=== PATIENT | male | born 1970 | race Two or more races ===

== ENCOUNTER 2019-08-20 13:24 | Emergency (ER) | payer SELFPAY ==
[2019-08-20] MEDS ORDERED: Aspirin 325 MG Tab PO ONE (13:29)
[2019-08-20] MEDS ORDERED: Nitroglycerin 0.4 MG Tab.SL SL ONE (13:30)
--- NOTE | 2019-08-20 13:31 | EDM.PDOC ---
ED HPI GENERAL MEDICAL PROBLEM - General Chief Complaint: Chest Pain Stated Complaint: CHEST PAIN Time Seen by Provider: 08/20/19 13:27 Source of Information: Reports: Family History Limitations: Reports: Language Barrier - History of Present Illness INITIAL COMMENTS - FREE TEXT/NARRATIVE: This 50 year old male is admitted to the ED with a chief complaint of substernal but just to the left chest pain that started this morning. According to his Niece, his pain is sharp to dull with heaviness. No radiation of pain. No nausea or vomiting. No SOB. According to his Niece, he has no history of heart disease or diabetes. He does have hypertension (?). He denies any other symptoms at this time. Left Chest Pain Score (Numeric/FACES): 6 - Related Data Allergies Allergy/AdvReac Type Severity Reaction Status Date / Time No Known Allergies Allergy Verified 08/20/19 13:32 Home Meds: Home Meds . [No Known Home Meds] 08/20/19 [History] ED ROS GENERAL - Review of Systems Review Of Systems: See Below Constitutional: Reports: No Symptoms HEENT: Reports: No Symptoms Respiratory: Reports: No Symptoms Cardiovascular: Reports: Chest Pain. Denies: Lightheadedness, Palpitations Endocrine: Reports: No Symptoms GI/Abdominal: Reports: No Symptoms : Reports: No Symptoms Musculoskeletal: Reports: No Symptoms Skin: Reports: No Symptoms Neurological: Reports: No Symptoms ED EXAM, GENERAL - Physical Exam Exam: See Below Exam Limited By: Language Barrier (but his neice is here to interpert for me.) General Appearance: Alert, WD/WN, Mild Distress (complaining of substernal chest pain.) Eye Exam: Bilateral Eye: EOMI, Normal Inspection, PERRL (4mm) Nose: Normal Inspection, Normal Mucosa Throat/Mouth: Normal Inspection, Normal Oropharynx Head: Atraumatic, Normocephalic Neck: Normal Inspection, Supple. No: Carotid Bruit Respiratory/Chest: No Respiratory Distress, Lungs Clear, Normal Breath Sounds, Chest Non-Tender Cardiovascular: Normal Peripheral Pulses, No Edema, No Gallop, No JVD, No Murmur , No Rub, Tachycardia Peripheral Pulses: 3+: Radial (L), Radial (R), Dorsalis Pedis (L), Dorsalis Pedis (R) GI/Abdominal: Normal Bowel Sounds, Soft, Non-Tender, No Organomegaly, No Abnormal Bruit, No Mass, Other (obese) (Male) Exam: Deferred Rectal (Males) Exam: Deferred Back Exam: Normal Inspection Extremities: Normal Inspection, Non-Tender, Normal Capillary Refill. No: Roxana' s Sign Neurological: Alert, Oriented (times 3), CN II-XII Intact, Normal Reflexes, No Motor/Sensory Deficits Psychiatric: Normal Affect, Normal Mood Skin Exam: Warm, Dry, Intact, Normal Color, No Rash Lymphatic: No Adenopathy Course - Vital Signs Text/Narrative:: I talked with Dr. Joe regarding this patient. I discussed that the patient had inverted T-waver in leads 3 and aVF and his Troponin 1 is 0.083. He states that he will talk with the endoscopy technican and see if he can be admitted here or transfer to [facility]. In the mean time, we will give the patient a 4, 000 unit of heparin followed by heparin drip per protocol. I spoke with Dr. Joe at 2:32PM. Dr. Joe called back at 2:48PM and ask that we transfer to [place] because we have no cardiology service this week. I spoke with Dr. Medina ED physician at [facility] at 2:54PM. I discussed with him the his history and Troponin 1 of 0.083. He has accepted him in transfer. The patient will be transferred via ALS, ground. The patient and the Niece agrees with the transfer plans to [facility] in [place]. Last Recorded V/S: Last Vital Signs Temp 96.7 F L 08/20/19 13:28 Pulse 82 08/20/19 14:35 Resp 18 08/20/19 14:35 BP 136/76 08/20/19 14:35 Pulse Ox 98 08/20/19 14:35 - Orders/Labs/Meds Orders: Active Orders 24 hr Category Date Time Status Chest 1V Frontal [CR] Stat Exams 08/20/19 13:28 Ordered Labs: Laboratory Tests 08/20/19 08/20/19 08/20/19 Range/Units 13:33 13:33 13:33 WBC 11.21 H (4.0-11.0) K/uL RBC 4.43 L (4.50-5.90) M/uL Hgb 14.5 (13.0-17.0) g/dL Hct 43.1 (38.0-50.0) % MCV 97.3 (80.0-98.0) fL MCH 32.7 H (27.0-32.0) pg MCHC 33.6 (31.0-37.0) g/dL RDW Std Deviation 47.1 (28.0-62.0) fl RDW Coeff of Morgan 13 (11.0-15.0) % Plt Count 265 (150-400) K/uL MPV 8.70 (7.40-12.00) fL Neut % (Auto) 71.4 (48.0-80.0) % Lymph % (Auto) 20.8 (16.0-40.0) % [place] % (Auto) 7.6 (0.0-15.0) % Eos % (Auto) 0.1 (0.0-7.0) % Baso % (Auto) 0.1 (0.0-1.5) % Neut # (Auto) 8.0 H (1.4-5.7) K/uL Lymph # (Auto) 2.3 (0.6-2.4) K/uL [place] # (Auto) 0.9 H (0.0-0.8) K/uL Eos # (Auto) 0.0 (0.0-0.7) K/uL Baso # (Auto) 0.0 (0.0-0.1) K/uL Nucleated RBC % 0.0 /100WBC Nucleated RBCs # 0 K/uL Sodium 136 (136-148) mmol/L Potassium 3.5 (3.5-5.1) mmol/L Chloride 100 (98-107) mmol/L Carbon Dioxide 24.9 (21.0-32.0) mmol/L BUN 14 (7.0-18.0) mg/dL Creatinine 1.2 (0.8-1.3) mg/dL Est Cr Clr Drug Dosing TNP Estimated GFR (MDRD) > 60.0 ml/min Glucose 129 H (74-106) mg/dL Calcium 8.5 (8.5-10.1) mg/dL Total Bilirubin 0.8 (0.2-1.0) mg/dL AST 25 (15-37) IU/L ALT 35 (14-63) IU/L Alkaline Phosphatase 97 (46-116) U/L Troponin I 0.083 H* (0.000-0.056) ng/mL B-Natriuretic Peptide 16 (<100) PG/ML Total Protein 8.1 (6.4-8.2) g/dL Albumin 4.0 (3.4-5.0) g/dL Globulin 4.1 H (2.6-4.0) g/dL Albumin/Globulin Ratio 1.0 (0.9-1.6) Meds: Medications Discontinued Medications Generic Name Dose Route Start Last Admin Trade Name Freq PRN Reason Stop Dose Admin Aspirin 325 mg 08/20/19 13:29 08/20/19 13:38 Aspirin PO 08/20/19 13:30 325 mg ONETIME ONE Administration Metoprolol Succinate 50 mg 08/20/19 13:40 08/20/19 13:46 Toprol Xl PO 08/20/19 13:41 50 mg ONETIME ONE Administration Nitroglycerin 0.4 mg 08/20/19 13:30 08/20/19 13:39 Nitrostat SL 08/20/19 13:31 0.4 mg ONETIME ONE Administration Nitroglycerin 0.4 mg 08/20/19 13:47 08/20/19 13:54 Nitrostat SL 0.4 mg Q5M PRN Administration Chest Pain Departure - Departure Time of Disposition: 15:03 Disposition: DC/Tfer to Acute Hospital 02 Reason for Transfer *Q: Primary PCI Indicated Condition: Fair Clinical Impression: Non-ST elevation DC (NSTEMI) Referrals: PCP,None [Primary Care Provider] - Forms: ED Department Discharge Sepsis Event Note - Focused Exam Vital Signs: Vital Signs Temp Pulse Pulse Resp BP BP Pulse Ox 08/20/19 14:35 82 18 136/76 98 08/20/19 14:04 113 H 16 128/80 96 08/20/19 13:54 116/85 08/20/19 13:53 117 H 18 116/85 96 08/20/19 13:48 143/68 H 08/20/19 13:46 114 H 143/68 H 08/20/19 13:39 155/95 H 08/20/19 13:35 105 H 20 153/100 H 99 08/20/19 13:28 96.7 F L 108 H 21 H 160/95 H 98 Date Exam was Performed: 08/20/19 Time Exam was Performed: 14:43 - My Orders Last 24 Hours: My Active Orders 08/20/19 13:28 Chest 1V Frontal [CR] Stat - Assessment/Plan Last 24 Hours: My Active Orders 08/20/19 13:28 Chest 1V Frontal [CR] Stat
[2019-08-20] MEDS ORDERED: Metoprolol Succinate 50 MG Tab.ER PO ONE (13:40)
[2019-08-20] MEDS: Nitroglycerin 0.4 MG Tab.SL SL PRN ×2 (13:48→13:54)
[2019-08-20 14:17] LABS: BLOOD UREA NITROGEN,BUN 14 mg/dL (7.0-18.0); CARBON DIOXIDE,CO2 24.9 mmol/L (21.0-32.0); CHLORIDE,CL 100 mmol/L (98-107); GLUCOSE RANDOM 129 mg/dL (74-106); POTASSIUM,K 3.5 mmol/L (3.5-5.1); SODIUM,NA 136 mmol/L (136-148)
[2019-08-20] MEDS ORDERED: Heparin Sodium 5,000 Units/ML Vial IVPUSH STA (14:44)
[2019-08-20] MEDS ORDERED: Heparin Sod,Pork In 0.45% Nacl 25,000 UNIT/500 ML IV.SOLN IV SCH (14:45)
--- NOTE | 2019-08-20 14:52 | CR ---
Chest: AP view of the chest was obtained. Comparison: No prior chest imaging. Heart size and mediastinum are normal. Lungs are clear with no acute parenchymal change. Bony structures are grossly intact. Impression: 1. Nothing acute is seen on AP chest x-ray. Diagnostic code #1 This report was dictated in MDT
== END 2019-08-20 15:50 ==
LOC: EDBD 13:24 → MW.ED 13:24
DX: I21.4 Non-ST elevation (NSTEMI) myocardial infarction (principal)
CPT/HCPCS: 36415; 71045; 80053; 83880; 84484; 85025; 85610; 85730; 93005; 96365; 99285; A9270; J1644; 99283